=== PATIENT | female | born 1955 | race American Indian/Alaskan Native ===

== ENCOUNTER 2020-08-18 11:14 | Day surgery (SDC) | payer MEDICARE, MEDICAID ==
[~2020-08-18] VITALS: Ht 160 cm; Wt 86.8 kg
[2020-08-18] VITALS (11 sets, daily range): BP systolic 111–147; BP diastolic 64–97
[~2020-08-18 11:14] MED LIST: DABI150C PO; FURO-149 PO; METO50TA17 PO
[2020-08-18] MEDS ORDERED: normal saline 1000ml 1,000 ML IV SCH (11:40)
[2020-08-18] MEDS ORDERED: CINN500C15 (11:58)
[2020-08-18] MEDS ORDERED: DILT180C49 PO (11:58)
[2020-08-18] MEDS ORDERED: MILK1CAP3 (11:58)
[2020-08-18] MEDS ORDERED: TURM500C4 PO (11:58)
[2020-08-18] MEDS ORDERED: FENU500C PO (12:00)
[2020-08-18 12:51] LABS: MEAN PLATELET VOLUME 7.5 FL (7.4-10.4); NEUTROPHILS # (AUTO) 3.3 X10'3 (1.8-7.7)
[2020-08-18 12:52] LABS: BASOPHILS % (AUTO) 0.5 % (0-1); EOSINOPHILS % (AUTO) 1.1 % (0-6); HEMATOCRIT 40.5 % (35.0-45.0); LYMPHOCYTES # (AUTO) 0.9 X10'3 (1.1-4.8); MEAN CORPUSCULAR HEMOGLOBIN 22.9 PG (27.0-31.0); MEAN CORPUSCULAR VOLUME 71.5 FL (78-98); MONOCYTES # (AUTO) 0.3 X10'3 (0-0.9); MONOCYTES % (AUTO) 6.8 % (2-12); NEUTROPHILS % (AUTO) 71.6 % (42-75); PLATELET COUNT 366 X10'3 (140-440); RED BLOOD COUNT 5.66 X10'6 (4.20-5.60); RED CELL DISTRIBUTION WIDTH 18.9 % (11.5-14.5); WHITE BLOOD COUNT 4.6 X10'3 (4.5-11.0)
[2020-08-18 14:06] LABS: ANISOCYTOSIS 2+; HYPOCHROMASIA 1+; MICROCYTOSIS 1+; PLATELET ESTIMATE NORMAL; POLYCHROMASIA FEW
== END 2020-08-18 17:00 | disposition home or self-care (01) ==
LOC: SSTAY O 11:14
PROVIDERS: ATTEND Radiology Diagnostic Radiology
DX: R19.01 Right upper quadrant abdominal swelling, mass and lump (principal); I48.91 Unspecified atrial fibrillation; Z20.828 Contact with and (suspected) exposure to other viral communicable diseases; K70.30 Alcoholic cirrhosis of liver without ascites; I25.10 Atherosclerotic heart disease of native coronary artery without angina pectoris; I11.0 Hypertensive heart disease with heart failure; I50.9 Heart failure, unspecified; Z98.890 Other specified postprocedural states; Z79.01 Long term (current) use of anticoagulants; Z87.891 Personal history of nicotine dependence; Z79.899 Other long term (current) drug therapy
CPT/HCPCS: 36415; 49180; 76942; 85008; 85025; 85610; 87635

== ENCOUNTER 2020-12-02 17:40 | Emergency (ER) | payer BC, MEDICAID ==
[~2020-12-02] VITALS: Ht 160 cm; Wt 77.2 kg
[~2020-12-02 17:40] MED LIST changes: +CINN500C15; +DILT180C49 PO; +FENU500C PO; -FURO-149 PO; -METO50TA17 PO; +MILK1CAP3; +TURM500C4 PO
[2020-12-02 17:50] VITALS: BP 169/115
[2020-12-02] MEDS ORDERED: LIDOcaine 1% W/epiNEPHrine 1:200,000 10ml vial IJ ONE (19:20)
[2020-12-02] MEDS ORDERED: bacitracin 15gm ointment TP ONE (19:20)
[2020-12-02] MEDS ORDERED: TETanus/Pertussis (Acell)/Diphther VAC/PF (Tdap-Adult) 0.5ml syringe IMVAC ONE (19:20)
== END 2020-12-02 20:24 | disposition home or self-care (01) ==
LOC: ER 17:40
DX: S61.511A Laceration without foreign body of right wrist, initial encounter (principal); M25.561 Pain in right knee; G89.29 Other chronic pain; F19.90 Other psychoactive substance use, unspecified, uncomplicated; Z20.3 Contact with and (suspected) exposure to rabies; Z86.73 Personal history of transient ischemic attack (TIA), and cerebral infarction without residual deficits; Z79.899 Other long term (current) drug therapy; W18.39XA Other fall on same level, initial encounter; Y93.89 Activity, other specified; Y92.89 Other specified places as the place of occurrence of the external cause; Y99.8 Other external cause status
CPT/HCPCS: 12001; 73564; 90471; 90715; 99284

== ENCOUNTER 2020-12-12 15:16 | Emergency (ER) | payer BC, MEDICAID ==
[~2020-12-12] VITALS: Ht 160 cm; Wt 79.5 kg
[2020-12-12 15:22] VITALS: BP 155/86
== END 2020-12-12 15:42 | disposition home or self-care (01) ==
LOC: ER 15:16
DX: S61.411D Laceration without foreign body of right hand, subsequent encounter (principal); G89.29 Other chronic pain; Z48.02 Encounter for removal of sutures; Z86.73 Personal history of transient ischemic attack (TIA), and cerebral infarction without residual deficits; Z72.89 Other problems related to lifestyle; Z79.899 Other long term (current) drug therapy; X58.XXXD Exposure to other specified factors, subsequent encounter
CPT/HCPCS: 99281

== ENCOUNTER 2021-02-14 13:38 | Observation (INO) | payer BC, MEDICAID ==
[~2021-02-14] VITALS: Ht 160 cm; Wt 88.3 kg
[~2021-02-14 13:38] MED LIST changes: +LACT10SO32 PO; +POTA20TA19 PO; +TRAM50TA2 PO; +[UNRECOGNIZED DRUG - CODE]; +[UNRECOGNIZED DRUG - CODE]
[2021-02-14 14:45] LABS: BASOPHILS % (AUTO) 0.1 % (0-1); EOSINOPHILS % (AUTO) 0.3 % (0-6); HEMATOCRIT 37.5 % (35.0-45.0); HEMOGLOBIN 12.5 g/dl (12.0-16.0); LYMPHOCYTES # (AUTO) 0.4 X10'3 (1.1-4.8); LYMPHOCYTES % (AUTO) 8.6 % (21-51); MEAN CORPUSCULAR HEMOGLOBIN 27.6 PG (27.0-31.0); MEAN CORPUSCULAR HGB CONC 33.4 g/dL (33.0-36.5); MEAN CORPUSCULAR VOLUME 82.7 FL (78-98); MEAN PLATELET VOLUME 6.7 FL (7.4-10.4); MONOCYTES # (AUTO) 0.4 X10'3 (0-0.9); MONOCYTES % (AUTO) 7.2 % (2-12); NEUTROPHILS # (AUTO) 4.4 X10'3 (1.8-7.7); NEUTROPHILS % (AUTO) 83.8 % (42-75); PLATELET COUNT 172 X10'3 (140-440); RED BLOOD COUNT 4.54 X10'6 (4.20-5.60); RED CELL DISTRIBUTION WIDTH 23.2 % (11.5-14.5); WHITE BLOOD COUNT 5.2 X10'3 (4.5-11.0)
[2021-02-14 14:59] LABS: ALANINE AMINOTRANSFERASE 44 U/L (12-78); ALBUMIN 2.1 G/DL (3.4-5.0); ALBUMIN/GLOBULIN RATIO 0.6 (1.1-1.5); ALKALINE PHOSPHATASE 210 IU/L (46-116); ANION GAP 13 (8-16); ASPARTATE AMINO TRANSFERASE 50 U/L (10-37); BILIRUBIN,TOTAL 1.5 MG/DL (0.1-1.0); BLOOD UREA NITROGEN 9 MG/DL (7-18); BUN/CREATININE RATIO 7.6 (6.6-38.0); CALCIUM 7.7 MG/DL (8.5-10.1); CHLORIDE 101 MMOL/L (99-107); CREATININE 1.19 MG/DL (0.40-0.90); GLUCOSE 138 MG/DL (70-104); POTASSIUM 4.1 MMOL/L (3.5-5.1); SODIUM 132 MMOL/L (135-145); TOTAL CARBON DIOXIDE 18.2 MMOL/L (24-32); TOTAL PROTEIN 5.8 G/DL (6.4-8.2); eGFR 45 ML/MIN
[2021-02-14] MEDS ORDERED: normal saline 1000ml 1,000 ML IV ONE (15:20)
[2021-02-14 15:25] LABS: ANISOCYTOSIS 3+; PLATELET ESTIMATE NORMAL
[2021-02-14 15:26] LABS: BURR CELLS FEW; ELLIPTOCYTES FEW; SCHISTOCYTES FEW
[2021-02-14 16:15] LABS: CLARITY,URINE CLOUDY (Clear); COLOR,URINE AMBER (Yellow); GLUCOSE, URINE NEGATIVE (Neg); KETONES,URINE 15 mg/dl (Neg); LEUKOCYTE ESTERASE ,URINE NEGATIVE (Neg); NITRITES, URINE NEGATIVE (Neg); OCCULT BLOOD,URINE MODERATE (Neg); PROTEIN,URINE TRACE mg/dl (Neg)
[2021-02-14] MEDS ORDERED: LACT10SO3 PO (16:16)
[2021-02-14 16:23] LABS: UA COLLECTION TYPE CLN CATCH MIDSTREAM
[2021-02-14 16:24] LABS: HYALINE CASTS >30 /LPF (NEGATIVE)
[2021-02-14] MEDS ORDERED: iohexol 300mg/ml 100ml inj. ONE (16:24)
[2021-02-14 16:25] LABS: BACTERIA,URINE 1+ /HPF (Neg); SQUAMOUS EPITHELIAL CELL,UR MODERATE /LPF (FEW); WBC,URINE 0-4 /HPF (0-4)
[2021-02-14 16:26] LABS: MUCUS STRANDS MANY /LPF (Neg); TRANSITIONAL EPI CELLS,URINE MODERATE /HPF
[2021-02-14] MEDS ORDERED: potassium Cl 20 mEq SR tablet PO PRN ×2 (17:10)
[2021-02-14] MEDS ORDERED: normal saline 1000ml 1,000 ML IV SCH (17:10)
[2021-02-14] MEDS ORDERED: magnesium 4gm in 100ml NS 100 ML IV PRN (17:10)
[2021-02-14] MEDS ORDERED: magnesium Cl slow-release 64mg tablet PO PRN (17:10)
[2021-02-14] MEDS ORDERED: magnesium 2GM in 50ml NS 50 ML IV PRN (17:10)
[2021-02-14] MEDS ORDERED: acetaminophen 325mg tablet PO PRN (17:10)
[2021-02-14] MEDS ORDERED: ondansetron/PF 4mg/2ml inj IV PRN (17:10)
[2021-02-14] MEDS ORDERED: potassium Cl 40MEQ/1/2NS 520ml 520 ML IV PRN ×2 (17:10)
--- NOTE | 2021-02-14 18:05 | NUR ---
pt helped to bedside commode. stand by assist. per pt, okay to give son an update
[2021-02-14] MEDS: K and/or MAG REPLACEMENT MC SCH (20:00)
--- NOTE | 2021-02-14 20:45 | NUR ---
Patient in room PCU 3013. I have received report from NILSON Jacob and had the opportunity to ask questions and assume patient care.
[2021-02-14 21:00] VITALS: BP 133/66
[2021-02-14 21:16] LABS: OCCULT BLOOD STOOL POSITIVE (Neg)
[2021-02-14] MEDS: lactulose 20gm/30ml cup PO SCH (21:23)
[2021-02-14] MEDS: morphine 2 MG/ML inj. syringe IV PRN (21:24)
[2021-02-14 22:00] VITALS: BP 116/76
[2021-02-15] MEDS: lactulose 20gm/30ml cup PO SCH ×4 (01:37→19:24)
[2021-02-15] MEDS: morphine 2 MG/ML inj. syringe IV PRN ×5 (01:37→20:53)
[2021-02-15 02:00] VITALS: BP 127/82
--- NOTE | 2021-02-15 06:00 | NUR ---
Patient in room PCU 3013. I have received report from Su DEVINE and had the opportunity to ask questions and assume patient care.
--- NOTE | 2021-02-15 06:02 | NUR ---
Problems reprioritized. Patient report given, questions answered & plan of care reviewed with NILSON Frankel.
[2021-02-15 07:22] VITALS: BP 114/75
[2021-02-15 07:28] LABS: BASOPHILS % (AUTO) 0.6 % (0-1); EOSINOPHILS # (AUTO) 0.1 X10'3 (0-0.9); EOSINOPHILS % (AUTO) 2.8 % (0-6); HEMATOCRIT 36.2 % (35.0-45.0); HEMOGLOBIN 12.2 g/dl (12.0-16.0); LYMPHOCYTES # (AUTO) 0.8 X10'3 (1.1-4.8); LYMPHOCYTES % (AUTO) 22.7 % (21-51); MEAN CORPUSCULAR HEMOGLOBIN 27.7 PG (27.0-31.0); MEAN CORPUSCULAR HGB CONC 33.6 g/dL (33.0-36.5); MEAN CORPUSCULAR VOLUME 82.2 FL (78-98); MEAN PLATELET VOLUME 6.7 FL (7.4-10.4); MONOCYTES # (AUTO) 0.3 X10'3 (0-0.9); MONOCYTES % (AUTO) 10.3 % (2-12); NEUTROPHILS # (AUTO) 2.1 X10'3 (1.8-7.7); NEUTROPHILS % (AUTO) 63.6 % (42-75); PLATELET COUNT 142 X10'3 (140-440); RED CELL DISTRIBUTION WIDTH 23.5 % (11.5-14.5); WHITE BLOOD COUNT 3.3 X10'3 (4.5-11.0)
[2021-02-15] MEDS: K and/or MAG REPLACEMENT MC SCH ×2 (08:00→20:00)
[2021-02-15] MEDS: diltiazem CD 180mg cap (once-daily) PO SCH (08:00)
[2021-02-15 08:02] LABS: ALBUMIN 1.9 G/DL (3.4-5.0); ANION GAP 8 (8-16); BLOOD UREA NITROGEN 7 MG/DL (7-18); BUN/CREATININE RATIO 8.2 (6.6-38.0); CALCIUM 7.9 MG/DL (8.5-10.1); CHLORIDE 106 MMOL/L (99-107); CREATININE 0.85 MG/DL (0.40-0.90); GLUCOSE 73 MG/DL (70-104); POTASSIUM 3.7 MMOL/L (3.5-5.1); SODIUM 136 MMOL/L (135-145); TOTAL CARBON DIOXIDE 21.7 MMOL/L (24-32); eGFR 67 ML/MIN
[2021-02-15 09:26] LABS: ANISOCYTOSIS 3+; PLATELET ESTIMATE NORMAL
[2021-02-15 09:27] LABS: BURR CELLS FEW; ELLIPTOCYTES FEW
[2021-02-15] MEDS ORDERED: morphine 2 MG/ML inj. syringe ONE (09:42)
[2021-02-15 11:00] VITALS: BP 139/72
--- NOTE | 2021-02-15 13:56 | NUR ---
Malnutrition consult: Pt reports 14-23 lb wt loss with decreased appetite per malnutrition risk screen with RN. Patient's current scaled weight is +8.8 kg from scaled wt hx of 79.5 kg 12/28/20, both weights documented to be obtained using a chair scale. Noted that pt with bilat 2+ mild edema likely contributing to some of the wt gain. Wt likely to fluctuate as per H&P pt takes Lasix as outpatient with hx of paracentesis per ED report. Pt admit for GIB, currently NPO though states she has been eating and drinking normally per ED report. Pt appears well developed well nourished per ED report. Pt currently lacks a minimum of two criteria for malnutrition however at higher risk for becoming malnourished secondary to hepatocellular carcinoma on chemotherapy. Will continue to follow and further monitor qualifying criteria for malnutrition. Addendum: 02/15/21 at [address] Amended: Links added.
--- NOTE | 2021-02-15 14:57 | NUR ---
Sent page to Dr. Hahn regarding pt still being NPO. asked to adat. Will continue to monitor.
[2021-02-15 15:00] VITALS: BP 149/78
[2021-02-15 18:00] VITALS: BP 147/82
--- NOTE | 2021-02-15 18:11 | NUR ---
Patient in room PCU 3013. I have received report from NILSON Frankel and had the opportunity to ask questions and assume patient care.
[2021-02-15] MEDS: traMADol 50MG tablet PO PRN (19:24)
[2021-02-15 22:00] VITALS: BP 137/77
[2021-02-16] MEDS: morphine 2 MG/ML inj. syringe IV PRN ×2 (00:46→04:59)
[2021-02-16] MEDS: lactulose 20gm/30ml cup PO SCH ×2 (02:20→07:20)
--- NOTE | 2021-02-16 06:00 | NUR ---
Patient in room PCU 3013. I have received report from Su DEVINE and had the opportunity to ask questions and assume patient care.
--- NOTE | 2021-02-16 06:10 | NUR ---
Problems reprioritized. Patient report given, questions answered & plan of care reviewed with NILSON Mcgregor.
[2021-02-16 07:00] VITALS: BP 100/60
[2021-02-16] MEDS: diltiazem CD 180mg cap (once-daily) PO SCH (07:20)
[2021-02-16] MEDS: traMADol 50MG tablet PO PRN (07:25)
[2021-02-16 07:55] LABS: BASOPHILS % (AUTO) 0.7 % (0-1); EOSINOPHILS # (AUTO) 0.1 X10'3 (0-0.9); EOSINOPHILS % (AUTO) 3.1 % (0-6); HEMATOCRIT 36.6 % (35.0-45.0); HEMOGLOBIN 12.2 g/dl (12.0-16.0); LYMPHOCYTES # (AUTO) 1.1 X10'3 (1.1-4.8); LYMPHOCYTES % (AUTO) 25.5 % (21-51); MEAN CORPUSCULAR HEMOGLOBIN 27.6 PG (27.0-31.0); MEAN CORPUSCULAR HGB CONC 33.4 g/dL (33.0-36.5); MEAN CORPUSCULAR VOLUME 82.5 FL (78-98); MEAN PLATELET VOLUME 6.8 FL (7.4-10.4); MONOCYTES # (AUTO) 0.5 X10'3 (0-0.9); MONOCYTES % (AUTO) 10.2 % (2-12); NEUTROPHILS # (AUTO) 2.7 X10'3 (1.8-7.7); NEUTROPHILS % (AUTO) 60.5 % (42-75); PLATELET COUNT 180 X10'3 (140-440); RED BLOOD COUNT 4.44 X10'6 (4.20-5.60); RED CELL DISTRIBUTION WIDTH 23.6 % (11.5-14.5); WHITE BLOOD COUNT 4.5 X10'3 (4.5-11.0)
[2021-02-16] MEDS: K and/or MAG REPLACEMENT MC SCH (08:00)
[2021-02-16 08:18] LABS: ALBUMIN 1.9 G/DL (3.4-5.0); ANION GAP 9 (8-16); BLOOD UREA NITROGEN 5 MG/DL (7-18); BUN/CREATININE RATIO 6.1 (6.6-38.0); CALCIUM 7.5 MG/DL (8.5-10.1); CHLORIDE 105 MMOL/L (99-107); CREATININE 0.82 MG/DL (0.40-0.90); GLUCOSE 77 MG/DL (70-104); MAGNESIUM 1.8 MG/DL (1.5-2.4); POTASSIUM 3.7 MMOL/L (3.5-5.1); SODIUM 135 MMOL/L (135-145); TOTAL CARBON DIOXIDE 20.8 MMOL/L (24-32); eGFR 70 ML/MIN
[2021-02-16 09:29] LABS: PLATELET ESTIMATE NORMAL
[2021-02-16 09:30] LABS: ANISOCYTOSIS 3+; MICROCYTOSIS 1+; POLYCHROMASIA FEW
--- NOTE | 2021-02-16 12:30 | NUR ---
patient was provided discharge instructions and verbalized understanding. New medications were faxed to the preferred pharmacy, [facility]. PIV was DC'd with the cannula intact. Patient belongings were sent home with the patient. Patient was wheeled to the lobby and was picked up by a family member.
== END 2021-02-16 12:26 | disposition home or self-care (01) ==
LOC: ER 13:40 → ED HOLD 17:08 → PCU 3S 20:44
PROVIDERS: ADMIT Internal Medicine; ATTEND Internal Medicine
DX: K92.1 Melena (principal); I48.91 Unspecified atrial fibrillation; N17.9 Acute kidney failure, unspecified; E46 Unspecified protein-calorie malnutrition; K76.0 Fatty (change of) liver, not elsewhere classified; I25.10 Atherosclerotic heart disease of native coronary artery without angina pectoris; G89.29 Other chronic pain; Z85.05 Personal history of malignant neoplasm of liver; Z86.73 Personal history of transient ischemic attack (TIA), and cerebral infarction without residual deficits; Z92.21 Personal history of antineoplastic chemotherapy; Z79.01 Long term (current) use of anticoagulants; Z79.899 Other long term (current) drug therapy
CPT/HCPCS: 36415; 74177; 80048; 80053; 81001; 82272; 83735; 85008; 85025; 85610; 87081; 93005; 96361; 96374; 96376; 99285; G0378; J2270; J7030; Q9967

== ENCOUNTER 2022-11-03 10:32 | Emergency (ER) | payer BC, MEDICAID ==
[~2022-11-03] VITALS: Ht 160 cm; Wt 77.0 kg
[~2022-11-03 10:32] MED LIST changes: -CINN500C15; -DABI150C PO; -DILT180C49 PO; -FENU500C PO; +FURO20TA4 PO; +HYDR-3965 PO; +HYDR5TAB14 PO; +LACT10SO3 PO; -LACT10SO32 PO; -MILK1CAP3; -POTA20TA19 PO; +SPIR50TA5 PO; -TRAM50TA2 PO; -TURM500C4 PO; -[UNRECOGNIZED DRUG - CODE]; -[UNRECOGNIZED DRUG - CODE]
[2022-11-03 12:06] LABS: BASOPHILS % (AUTO) 0.5 % (0-1); EOSINOPHILS % (AUTO) 0.9 % (0-6); HEMATOCRIT 40.5 % (35.0-45.0); HEMOGLOBIN 13.3 g/dl (12.0-16.0); LYMPHOCYTES # (AUTO) 0.6 X10'3 (1.1-4.8); LYMPHOCYTES % (AUTO) 17.3 % (21-51); MEAN CORPUSCULAR HEMOGLOBIN 27.9 PG (27.0-31.0); MEAN CORPUSCULAR HGB CONC 32.8 g/dL (33.0-36.5); MEAN CORPUSCULAR VOLUME 85.1 FL (78-98); MEAN PLATELET VOLUME 7.2 FL (7.4-10.4); MONOCYTES # (AUTO) 0.2 X10'3 (0-0.9); MONOCYTES % (AUTO) 7.1 % (2-12); NEUTROPHILS # (AUTO) 2.6 X10'3 (1.8-7.7); NEUTROPHILS % (AUTO) 74.2 % (42-75); PLATELET COUNT 123 X10'3 (140-440); RED BLOOD COUNT 4.76 X10'6 (4.20-5.60); RED CELL DISTRIBUTION WIDTH 18.3 % (11.5-14.5); WHITE BLOOD COUNT 3.5 X10'3 (4.5-11.0)
[2022-11-03 12:36] LABS: ALANINE AMINOTRANSFERASE 26 U/L (12-78); ALBUMIN 3.3 G/DL (3.4-5.0); ALBUMIN/GLOBULIN RATIO 0.9 (1.1-1.5); ALKALINE PHOSPHATASE 226 IU/L (46-116); ANION GAP 8 (8-16); ASPARTATE AMINO TRANSFERASE 31 U/L (10-37); BLOOD UREA NITROGEN 10 MG/DL (7-18); BUN/CREATININE RATIO 15.6 (6.6-38.0); CALCIUM 8.5 MG/DL (8.5-10.1); CHLORIDE 106 MMOL/L (99-107); CREATININE 0.64 MG/DL (0.40-0.90); GLUCOSE 104 MG/DL (70-104); POTASSIUM 3.4 MMOL/L (3.5-5.1); SODIUM 139 MMOL/L (135-145); TOTAL CARBON DIOXIDE 25.2 MMOL/L (24-32); TOTAL PROTEIN 6.9 G/DL (6.4-8.2); eGFR > 90 ML/MIN
[2022-11-03] MEDS ORDERED: furosemide 10 MG/1 ML 10ml inj IV ONE (13:05)
--- NOTE | 2022-11-03 14:12 | NUR ---
pt ambulated independently to bathroom, but was moderately SOB upon returning. No hypoxia noted.
[2022-11-03] MEDS ORDERED: POTA20PA40 PO (14:49)
[2022-11-03 15:06] VITALS: BP 131/72
== END 2022-11-03 15:08 | disposition home or self-care (01) ==
LOC: ER 10:33
DX: I50.33 Acute on chronic diastolic (congestive) heart failure (principal); R60.0 Localized edema; R06.02 Shortness of breath; R07.89 Other chest pain; I48.91 Unspecified atrial fibrillation; G89.29 Other chronic pain; F17.200 Nicotine dependence, unspecified, uncomplicated; Z86.73 Personal history of transient ischemic attack (TIA), and cerebral infarction without residual deficits; Z85.9 Personal history of malignant neoplasm, unspecified; Z98.890 Other specified postprocedural states; Z72.89 Other problems related to lifestyle; Z79.899 Other long term (current) drug therapy
CPT/HCPCS: 36415; 71045; 80053; 83880; 84484; 85025; 93005; 96374; 99285; J1940

== ENCOUNTER 2023-01-16 13:17 | Emergency (ER) | payer BC, MEDICAID ==
[~2023-01-16] VITALS: Ht 157.5 cm; Wt 88.6 kg
[~2023-01-16 13:17] MED LIST changes: +POTA20PA40 PO
[2023-01-16 13:35] LABS: BASOPHILS % (AUTO) 0.6 % (0-1); EOSINOPHILS # (AUTO) 0.1 X10'3 (0-0.9); EOSINOPHILS % (AUTO) 2.1 % (0-6); HEMATOCRIT 42.7 % (35.0-45.0); HEMOGLOBIN 14.2 g/dl (12.0-16.0); LYMPHOCYTES # (AUTO) 1.2 X10'3 (1.1-4.8); MEAN CORPUSCULAR HEMOGLOBIN 29.1 PG (27.0-31.0); MEAN CORPUSCULAR HGB CONC 33.2 g/dL (33.0-36.5); MEAN CORPUSCULAR VOLUME 87.5 FL (78-98); MEAN PLATELET VOLUME 7.4 FL (7.4-10.4); MONOCYTES # (AUTO) 0.4 X10'3 (0-0.9); MONOCYTES % (AUTO) 10.2 % (2-12); NEUTROPHILS # (AUTO) 2.1 X10'3 (1.8-7.7); NEUTROPHILS % (AUTO) 56.1 % (42-75); PLATELET COUNT 124 X10'3 (140-440); RED BLOOD COUNT 4.88 X10'6 (4.20-5.60); RED CELL DISTRIBUTION WIDTH 16.6 % (11.5-14.5); WHITE BLOOD COUNT 3.8 X10'3 (4.5-11.0)
[2023-01-16] MEDS ORDERED: albuterol 2.5 MG/3 ML nebule NEB ONE (13:45)
[2023-01-16 13:52] LABS: ALANINE AMINOTRANSFERASE 22 U/L (12-78); ALBUMIN 3.2 G/DL (3.4-5.0); ALBUMIN/GLOBULIN RATIO 0.9 (1.1-1.5); ALKALINE PHOSPHATASE 223 IU/L (46-116); ANION GAP 8 (8-16); ASPARTATE AMINO TRANSFERASE 38 U/L (10-37); BILIRUBIN,TOTAL 0.8 MG/DL (0.1-1.0); BLOOD UREA NITROGEN 17 MG/DL (7-18); CALCIUM 8.4 MG/DL (8.5-10.1); CHLORIDE 105 MMOL/L (99-107); GLUCOSE 139 MG/DL (70-104); POTASSIUM 3.4 MMOL/L (3.5-5.1); SODIUM 139 MMOL/L (135-145); TOTAL CARBON DIOXIDE 26.1 MMOL/L (24-32); TOTAL PROTEIN 6.9 G/DL (6.4-8.2)
[2023-01-16 13:58] LABS: MAGNESIUM 1.7 MG/DL (1.5-2.4)
[2023-01-16 14:05] LABS: BUN/CREATININE RATIO 21.8 (10.0-20.0); CREATININE 0.78 MG/DL (0.40-0.90); eGFR 73 ML/MIN
[2023-01-16 14:37] LABS: APTT 57 SECONDS (22-32); D-DIMER 0.34 MG/L FEU (0-0.50)
[2023-01-16] MEDS ORDERED: mag hydrox/Alum hydrox/simeth 30ml oral suspension PO ONE (14:45)
[2023-01-16] MEDS ORDERED: pantoprazole 40mg Tablet.DR PO ONE (14:45)
[2023-01-16] MEDS ORDERED: LIDOcaine Viscous 15ml cup MM ONE (14:45)
[2023-01-16 15:52] VITALS: BP 139/70
[2023-01-16] MEDS ORDERED: PANT-47 PO (17:26)
[2023-01-16] MEDS ORDERED: albuterol 2.5 MG/3 ML nebule ONE (17:46)
--- NOTE | 2023-01-16 18:00 | NUR ---
PT TAKEN TO FAST TRACK BY RESPIRATORY FOR NEB BREATHING TX.
== END 2023-01-16 18:20 | disposition home or self-care (01) ==
LOC: ER 13:18
DX: R07.9 Chest pain, unspecified (principal); R06.02 Shortness of breath; M25.512 Pain in left shoulder
CPT/HCPCS: 36415; 71045; 80053; 83735; 83880; 84484; 85025; 85379; 85610; 85730; 94640; 94760; 99284

== ENCOUNTER 2023-05-13 13:21 | Inpatient (IN) | payer BC, MEDICAID ==
[~2023-05-13] VITALS: Ht 157.5 cm; Wt 82.0 kg
[2023-05-13 10:30] VITALS: RESP 16
[~2023-05-13 13:21] MED LIST changes: +PANT-47 PO
[2023-05-13 14:10] LABS: BASOPHILS % (AUTO) 0.1 % (0-1)
[2023-05-13 14:11] LABS: EOSINOPHILS % (AUTO) 0.2 % (0-6); HEMATOCRIT 56.1 % (35.0-45.0); LYMPHOCYTES # (AUTO) 1.3 X10'3 (1.1-4.8); LYMPHOCYTES % (AUTO) 8.9 % (21-51); MEAN CORPUSCULAR HEMOGLOBIN 31.4 PG (27.0-31.0); MEAN CORPUSCULAR HGB CONC 34.7 g/dL (33.0-36.5); MEAN CORPUSCULAR VOLUME 90.5 FL (78-98); MEAN PLATELET VOLUME 7.9 FL (7.4-10.4); MONOCYTES % (AUTO) 6.9 % (2-12); NEUTROPHILS % (AUTO) 83.9 % (42-75); PLATELET COUNT 239 X10'3 (140-440); RED CELL DISTRIBUTION WIDTH 16.2 % (11.5-14.5); WHITE BLOOD COUNT 14.2 X10'3 (4.5-11.0)
[2023-05-13 14:15] LABS: BILIRUBIN,URINE MODERATE (Neg); CLARITY,URINE SLIGHTLY CLOUDY (Clear); COLOR,URINE AMBER (Yellow); GLUCOSE, URINE 100 mg/dl (Neg); KETONES,URINE TRACE mg/dl (Neg); LEUKOCYTE ESTERASE ,URINE NEGATIVE (Neg); OCCULT BLOOD,URINE TRACE-INTACT (Neg); PH,URINE 6.5 (4.8-8.0); PROTEIN,URINE 100 mg/dl (Neg)
[2023-05-13 14:21] LABS: UA COLLECTION TYPE CLN CATCH MIDSTREAM
[2023-05-13 14:26] LABS: ALANINE AMINOTRANSFERASE 61 U/L (12-78); ALBUMIN 3.5 G/DL (3.4-5.0); ALBUMIN/GLOBULIN RATIO 0.9 (1.1-1.5); ALKALINE PHOSPHATASE 139 IU/L (46-116); ANION GAP 14 (8-16); ASPARTATE AMINO TRANSFERASE 82 U/L (10-37); BILIRUBIN,TOTAL 3.4 MG/DL (0.1-1.0); BLOOD UREA NITROGEN 14 MG/DL (7-18); BUN/CREATININE RATIO 18.2 (10.0-20.0); CHLORIDE 94 MMOL/L (99-107); CREATININE 0.77 MG/DL (0.40-0.90); GLUCOSE 113 MG/DL (70-104); LIPASE 285 U/L (73-393); SODIUM 130 MMOL/L (135-145); TOTAL CARBON DIOXIDE 21.8 MMOL/L (24-32); TOTAL PROTEIN 7.4 G/DL (6.4-8.2); eCRCL 55 ML/MIN; eGFR 74 ML/MIN
[2023-05-13 14:29] LABS: NITRITES, URINE NEGATIVE (Neg)
[2023-05-13 14:31] LABS: SQUAMOUS EPITHELIAL CELL,UR MANY /LPF (FEW)
[2023-05-13 14:32] LABS: BACTERIA,URINE 1+ /HPF (Neg); HYALINE CASTS >30 /LPF (NEGATIVE); MUCUS STRANDS MANY /LPF (Neg)
[2023-05-13 14:33] LABS: POTASSIUM 2.6 MMOL/L (3.5-5.1)
[2023-05-13 14:33] LABS: WBC,URINE 0-4 /HPF (0-4)
[2023-05-13 15:02] LABS: HEMOGLOBIN 19.5 g/dl (12.0-16.0)
[2023-05-13] MEDS ORDERED: normal saline 1000ML IV soln IVB ONE (17:00)
[2023-05-13] MEDS ORDERED: ondansetron/PF 4mg/2ml inj IV ONE (17:00)
[2023-05-13] MEDS ORDERED: morphine 4 MG/ML inj SYRINge IV ONE ×2 (17:10→18:15)
[2023-05-13] MEDS ORDERED: potassium Cl 20mEq/100mL bag 100 ML IV SCH (17:10)
[2023-05-13] MEDS ORDERED: magnesium 2GM in 50ml NS 50 ML IV ONE (17:10)
[2023-05-13] MEDS ORDERED: iohexol 300mg/ml 100ml inj. ONE (17:23)
[2023-05-13 18:08] LABS: APTT 41 SECONDS (22-32); INR 1.6 INR
[2023-05-13] MEDS ORDERED: piperacillin/tazo 3.375gm/50ml 50 ML IV ONE (18:35)
[2023-05-13] MEDS ORDERED: Potassium Cl 40 MEQ in sodium chloride 0.45% 500 ML IV ONE (18:45)
[2023-05-13] MEDS ORDERED: HYDROcodone/acetaminophen 10/325mg tab PO PRN (22:20)
[2023-05-13] MEDS ORDERED: magnesium Cl slow-release 64mg tablet PO PRN (22:20)
[2023-05-13] MEDS ORDERED: mag hydrox/Alum hydrox/simeth 30ml oral suspension PO PRN (22:20)
[2023-05-13] MEDS ORDERED: potassium Cl 40MEQ/1/2NS 520ml 520 ML IV PRN (22:20)
[2023-05-13] MEDS ORDERED: acetaminophen 325mg tablet PO PRN ×2 (22:20)
[2023-05-13] MEDS ORDERED: magnesium hydroxide 30ml (MOM) UD suspension PO PRN (22:20)
[2023-05-13] MEDS ORDERED: morphine 2 MG/ML inj. syringe IV PRN (22:20)
[2023-05-13] MEDS ORDERED: ondansetron/PF 4mg/2ml inj IV PRN (22:20)
[2023-05-13] MEDS ORDERED: diphenhydrAMINE 25mg capsule PO PRN (22:20)
[2023-05-13] MEDS ORDERED: potassium Cl 20 mEq SR tablet PO PRN (22:20)
[2023-05-13] MEDS ORDERED: magnesium 2GM in 50ml NS 50 ML IV PRN (22:20)
[2023-05-13] MEDS ORDERED: bisacodyl 10mg suppository rectal RC PRN (22:20)
[2023-05-13] MEDS ORDERED: HYDROcodone/acetaminophen 5mg/325mg tablet PO PRN (22:20)
[2023-05-13] MEDS ORDERED: diphenhydrAMINE 50 mg/ml inj IV PRN (22:20)
[2023-05-13] MEDS ORDERED: HYDROmorphone inj. 0.5 MG/0.5 ML DISP.SYRIN IV PRN (22:20)
[2023-05-13] MEDS ORDERED: magnesium 4gm in 100ml NS 100 ML IV PRN (22:20)
[2023-05-13] MEDS ORDERED: ondansetron 4mg rapidly disintigrating tab PO PRN (22:20)
[2023-05-13 23:44] LABS: APTT 39 SECONDS (22-32); INR 1.6 INR; PROTHROMBIN TIME 16.5 SECONDS (9.0-12.0)
[2023-05-14] VITALS (8 sets, daily range): BP systolic 117–169; BP diastolic 68–99; PULSE 75–142; RESP 14–18; TEMP 97.5–98.7; O2SAT 95–98
--- NOTE | 2023-05-14 | NUR ---
Patient in room ORTHO 4007. I have received report from Paolo DEVINE and had the opportunity to ask questions and assume patient care.patient orientated to room, appeared very cold unable initially to get temp. Warmed patient up with blankets. retook. 97.4 AX. Medicated x1 with [facility] for abdominal pain 04/14, will continue to monitor
[2023-05-14] MEDS: piperacillin/tazo 4.5gm/100ml 100 ML IV SCH ×3 (00:06→17:01)
[2023-05-14] MEDS: potassium Cl 20mEq in NS 1,000 ML IV SCH ×2 (00:09→08:20)
[2023-05-14 01:16] LABS: POTASSIUM 2.9 MMOL/L (3.5-5.1)
[2023-05-14] MEDS: morphine 2 MG/ML inj. syringe IV PRN ×3 (02:05→13:49)
--- NOTE | 2023-05-14 05:47 | NUR ---
Tele called to say patient was in 160's HR, was wanting to go to BR. and is in pain. Took to BR and rechecked with tele box. patients rate 110 at this time
--- NOTE | 2023-05-14 06:15 | NUR ---
Problems reprioritized. Patient report given, questions answered & plan of care reviewed with NILSON Gay.
--- NOTE | 2023-05-14 06:26 | NUR ---
Problems reprioritized. Patient report given, questions answered & plan of care reviewed with Veronica DEVINE.
--- NOTE | 2023-05-14 06:30 | NUR ---
Problems reprioritized. Patient report given, questions answered & plan of care reviewed with RN. Priscila.
--- NOTE | 2023-05-14 06:31 | NUR ---
Patient in room ORTHO 4007. I have received report from NILSON Gay and had the opportunity to ask questions and assume patient care.
[2023-05-14 06:48] LABS: BASOPHILS % (AUTO) 0 % (0-1); HEMOGLOBIN 17.9 g/dl (12.0-16.0); LYMPHOCYTES # (AUTO) 1.1 X10'3 (1.1-4.8); MEAN PLATELET VOLUME 7.6 FL (7.4-10.4); MONOCYTES # (AUTO) 0.9 X10'3 (0-0.9); NEUTROPHILS % (AUTO) 88.2 % (42-75)
[2023-05-14 06:50] LABS: EOSINOPHILS % (AUTO) 0.2 % (0-6); HEMATOCRIT 52.4 % (35.0-45.0); LYMPHOCYTES % (AUTO) 6.3 % (21-51); MEAN CORPUSCULAR HEMOGLOBIN 30.6 PG (27.0-31.0); MEAN CORPUSCULAR HGB CONC 34.1 g/dL (33.0-36.5); MEAN CORPUSCULAR VOLUME 89.7 FL (78-98); MONOCYTES % (AUTO) 5.3 % (2-12); NEUTROPHILS # (AUTO) 15.8 X10'3 (1.8-7.7); PLATELET COUNT 221 X10'3 (140-440); RED BLOOD COUNT 5.84 X10'6 (4.20-5.60); WHITE BLOOD COUNT 17.9 X10'3 (4.5-11.0)
[2023-05-14 07:04] LABS: ALANINE AMINOTRANSFERASE 75 U/L (12-78); ALBUMIN 3.1 G/DL (3.4-5.0); ALBUMIN/GLOBULIN RATIO 0.9 (1.1-1.5); ALKALINE PHOSPHATASE 125 IU/L (46-116); ANION GAP 11 (8-16); ASPARTATE AMINO TRANSFERASE 94 U/L (10-37); BILIRUBIN,TOTAL 2.6 MG/DL (0.1-1.0); BLOOD UREA NITROGEN 22 MG/DL (7-18); BUN/CREATININE RATIO 20.6 (10.0-20.0); CALCIUM 8.3 MG/DL (8.5-10.1); CHLORIDE 94 MMOL/L (99-107); CREATININE 1.07 MG/DL (0.40-0.90); GLUCOSE 111 MG/DL (70-104); MAGNESIUM 2.4 MG/DL (1.5-2.4); POTASSIUM 3.8 MMOL/L (3.5-5.1); SODIUM 128 MMOL/L (135-145); TOTAL CARBON DIOXIDE 23.2 MMOL/L (24-32); TOTAL PROTEIN 6.5 G/DL (6.4-8.2); eCRCL 39 ML/MIN; eGFR 51 ML/MIN
[2023-05-14] MEDS: pantoprazole 40MG/NS 100ML BAG 100 ML IV SCH (07:20)
[2023-05-14] MEDS: docusate sod 100mg capsule PO SCH ×2 (07:21→21:24)
--- NOTE | 2023-05-14 07:51 | NUR ---
Page Sent PAGER ID: [phone] MESSAGE: [phone] Lavelle, pt HR has went up to the 160 and pt is just laying down i did give pain meds. has not been sustaining but all over the place with HR per television analyzer. kathy [phone]
[2023-05-14] MEDS: K and/or MAG REPLACEMENT MC SCH ×2 (08:00→20:00)
--- NOTE | 2023-05-14 08:48 | NUR ---
Called and gave report to ilda in recovery about this pt. they just came and got the pt, BS was 125, i let them know that the pt was kind of NPO because there was no note, order, or anything about surgery today just a possible consult. dr fong made pt NPO at about 8 am. i let ilda know about all abnormal labs and about the pts HR going up to the 180 per television operator and being all over the place, in afib and tachy. also let them know pt had morphine right before 0700 because she was in a lot of pain.
[2023-05-14] MEDS ORDERED: SINCALIDE IV ONE (09:00)
[2023-05-14] MEDS ORDERED: NORMAL SALINE IV ONE (09:00)
--- NOTE | 2023-05-14 09:11 | NUR ---
PATIENT IS TRANSFERRED BACK TO ORTHO ROOM BY ENGINEER INTERN WITH ALL PERSONAL BELONGINGS IN PATIENT BAG WITH PATIENT LABEL: BELONGINGS ARE FOLLOW: 1 BLK SPORTS BRA, ONE PAIR OF BRIEF UNDERWEAR THAT SHE WANTED TO KEEP, ONE GLASSES CASE WITH 5 RINGS AND TAPED.
--- NOTE | 2023-05-14 09:18 | NUR ---
pt is back to the floor, dr glynn will do surgery on pt tomorrow
--- NOTE | 2023-05-14 09:39 | NUR ---
plan to do HIDA scan at 1130, Kaci DEVINE aware of plan and to not give pain medication
[2023-05-14] MEDS ORDERED: pneumococcal 23-VAL P-sac vacc 25 mcg/0.5ml vial IMVAC ONE (10:00)
[2023-05-14] MEDS ORDERED: oxyCODONE IR 5mg (immed. release) tablet PO PRN (11:45)
[2023-05-14] MEDS ORDERED: oxyCODONE IR 5mg (immed. release) tablet PO ONE (12:00)
--- NOTE | 2023-05-14 12:49 | NUR ---
asked dr fong about pts BNP being elevated and the fluids at 100 ml hr she was on said he would look at it to be changed
--- NOTE | 2023-05-14 18:40 | NUR ---
MESSAGE: Bernie- [id number] - HR 160- please call ELIUD thank you
--- NOTE | 2023-05-14 18:42 | NUR ---
Patient in room ORTHO 4007. I have received report from NILSON Winter and had the opportunity to ask questions and assume patient care.
--- NOTE | 2023-05-14 18:45 | NUR ---
paged dr fong let him know about pt increased hr back to 160s, he wanted to continue the cardizem and decrease fluids to 70 ml/hr. let night nurse know
--- NOTE | 2023-05-14 19:11 | NUR ---
Problems reprioritized. Patient report given, questions answered & plan of care reviewed with deborah harris.
[2023-05-14] MEDS: oxyCODONE IR 5mg (immed. release) tablet PO PRN (21:24)
[2023-05-14] MEDS: diltiazem CD 120mg capsule (once-daily) PO SCH (21:24)
[2023-05-15] MEDS: piperacillin/tazo 4.5gm/100ml 100 ML IV SCH ×3 (00:07→15:44)
[2023-05-15] MEDS: potassium Cl 20mEq in NS 1,000 ML IV SCH ×3 (00:07→23:31)
[2023-05-15] MEDS: temazepam 15mg capsule PO PRN ×2 (00:09→22:13)
[2023-05-15 06:00] VITALS: BP 120/68; PULSE 75; RESP 16; TEMP 98.3; O2SAT 96
--- NOTE | 2023-05-15 06:10 | NUR ---
Patient in room ORTHO 4007. I have received report from Deidra and had the opportunity to ask questions and assume patient care.
[2023-05-15 06:32] LABS: BASOPHILS % (AUTO) 0.2 % (0-1); EOSINOPHILS # (AUTO) 0.2 X10'3 (0-0.9); EOSINOPHILS % (AUTO) 1.6 % (0-6); HEMATOCRIT 43.8 % (35.0-45.0); HEMOGLOBIN 15.2 g/dl (12.0-16.0); LYMPHOCYTES # (AUTO) 1.5 X10'3 (1.1-4.8); LYMPHOCYTES % (AUTO) 14.7 % (21-51); MEAN CORPUSCULAR HEMOGLOBIN 31.6 PG (27.0-31.0); MEAN CORPUSCULAR HGB CONC 34.8 g/dL (33.0-36.5); MEAN PLATELET VOLUME 7.8 FL (7.4-10.4); MONOCYTES # (AUTO) 0.9 X10'3 (0-0.9); NEUTROPHILS # (AUTO) 7.4 X10'3 (1.8-7.7); NEUTROPHILS % (AUTO) 74.5 % (42-75); PLATELET COUNT 128 X10'3 (140-440); RED BLOOD COUNT 4.81 X10'6 (4.20-5.60); RED CELL DISTRIBUTION WIDTH 16.2 % (11.5-14.5); WHITE BLOOD COUNT 9.9 X10'3 (4.5-11.0)
--- NOTE | 2023-05-15 06:33 | NUR ---
Problems reprioritized. Patient report given, questions answered & plan of care reviewed with NILSON Ash.
[2023-05-15 06:48] LABS: ALANINE AMINOTRANSFERASE 136 U/L (12-78); ALBUMIN 2.6 G/DL (3.4-5.0); ALBUMIN/GLOBULIN RATIO 0.9 (1.1-1.5); ALKALINE PHOSPHATASE 95 IU/L (46-116); ANION GAP 6 (8-16); ASPARTATE AMINO TRANSFERASE 170 U/L (10-37); BILIRUBIN,TOTAL 2.1 MG/DL (0.1-1.0); BLOOD UREA NITROGEN 17 MG/DL (7-18); BUN/CREATININE RATIO 20.5 (10.0-20.0); CALCIUM 8.2 MG/DL (8.5-10.1); CHLORIDE 99 MMOL/L (99-107); CREATININE 0.83 MG/DL (0.40-0.90); GLUCOSE 82 MG/DL (70-104); MAGNESIUM 2.2 MG/DL (1.5-2.4); POTASSIUM 3.4 MMOL/L (3.5-5.1); SODIUM 132 MMOL/L (135-145); TOTAL CARBON DIOXIDE 26.6 MMOL/L (24-32); TOTAL PROTEIN 5.6 G/DL (6.4-8.2); eCRCL 51 ML/MIN; eGFR 68 ML/MIN
[2023-05-15 07:57] VITALS: RESP 16; O2SAT 96
[2023-05-15] MEDS: K and/or MAG REPLACEMENT MC SCH ×2 (08:00→19:02)
[2023-05-15] MEDS: pantoprazole 40MG/NS 100ML BAG 100 ML IV SCH (08:44)
[2023-05-15] MEDS: docusate sod 100mg capsule PO SCH ×2 (09:45→19:41)
[2023-05-15] MEDS: potassium Cl 20 mEq SR tablet PO PRN ×3 (09:45→17:46)
[2023-05-15] MEDS: diltiazem CD 120mg capsule (once-daily) PO SCH (09:46)
[2023-05-15] MEDS: oxyCODONE IR 5mg (immed. release) tablet PO PRN ×4 (09:46→22:13)
[2023-05-15 10:00] VITALS: BP 126/70; PULSE 82; RESP 16; TEMP 97.8; O2SAT 95
[2023-05-15] MEDS: morphine 2 MG/ML inj. syringe IV PRN ×2 (15:37→19:45)
[2023-05-15 18:00] VITALS: BP 98/63; PULSE 68; RESP 16; TEMP 97.8; O2SAT 95
--- NOTE | 2023-05-15 18:12 | NUR ---
Problems reprioritized. Patient report given, questions answered & plan of care reviewed with Prudence/Norman.
[2023-05-15 18:28] LABS: HBSAG SCREEN Negative (Negative); HEP B CORE AB, IGM Negative (Negative); HEP B CORE AB, TOT Positive (Negative)
--- NOTE | 2023-05-15 18:40 | NUR ---
Patient in room ORTHO 4007. I have received report from ALEXANDRO DEVINE and had the opportunity to ask questions and assume patient care.
[2023-05-15 20:00] VITALS: RESP 16; O2SAT 95
[2023-05-15 22:00] VITALS: BP 133/67; PULSE 74; RESP 18; TEMP 97.7; O2SAT 97
[2023-05-16] MEDS: piperacillin/tazo 4.5gm/100ml 100 ML IV SCH ×2 (00:46→07:45)
[2023-05-16] MEDS: oxyCODONE IR 5mg (immed. release) tablet PO PRN ×3 (03:06→11:37)
[2023-05-16] MEDS: morphine 2 MG/ML inj. syringe IV PRN ×2 (05:39→14:52)
[2023-05-16 06:00] VITALS: BP 112/56; PULSE 62; RESP 16; TEMP 97.7; O2SAT 98
[2023-05-16 06:35] LABS: BASOPHILS % (AUTO) 0.3 % (0-1); EOSINOPHILS # (AUTO) 0.2 X10'3 (0-0.9); EOSINOPHILS % (AUTO) 1.7 % (0-6); HEMATOCRIT 39.7 % (35.0-45.0); LYMPHOCYTES # (AUTO) 1.7 X10'3 (1.1-4.8); LYMPHOCYTES % (AUTO) 15.4 % (21-51); MEAN CORPUSCULAR HEMOGLOBIN 32.4 PG (27.0-31.0); MEAN CORPUSCULAR HGB CONC 35.2 g/dL (33.0-36.5); MEAN PLATELET VOLUME 7.9 FL (7.4-10.4); MONOCYTES # (AUTO) 0.9 X10'3 (0-0.9); MONOCYTES % (AUTO) 8.6 % (2-12); NEUTROPHILS # (AUTO) 8.1 X10'3 (1.8-7.7); PLATELET COUNT 142 X10'3 (140-440); RED BLOOD COUNT 4.32 X10'6 (4.20-5.60); RED CELL DISTRIBUTION WIDTH 16.5 % (11.5-14.5); WHITE BLOOD COUNT 10.9 X10'3 (4.5-11.0)
--- NOTE | 2023-05-16 06:35 | NUR ---
I have received report from DENISSE Austin and had the opportunity to ask questions and assume patient care. No distress at this time.
[2023-05-16 06:54] LABS: ALANINE AMINOTRANSFERASE 118 U/L (12-78); ALBUMIN 2.9 G/DL (3.4-5.0); ALKALINE PHOSPHATASE 141 IU/L (46-116); ANION GAP 8 (8-16); ASPARTATE AMINO TRANSFERASE 100 U/L (10-37); BILIRUBIN,TOTAL 1.6 MG/DL (0.1-1.0); BLOOD UREA NITROGEN 15 MG/DL (7-18); BUN/CREATININE RATIO 17.9 (10.0-20.0); CALCIUM 7.9 MG/DL (8.5-10.1); CHLORIDE 100 MMOL/L (99-107); CREATININE 0.84 MG/DL (0.40-0.90); GLUCOSE 97 MG/DL (70-104); MAGNESIUM 1.8 MG/DL (1.5-2.4); POTASSIUM 4.2 MMOL/L (3.5-5.1); SODIUM 131 MMOL/L (135-145); TOTAL CARBON DIOXIDE 22.8 MMOL/L (24-32); TOTAL PROTEIN 5.9 G/DL (6.4-8.2); eCRCL 50 ML/MIN; eGFR 67 ML/MIN
[2023-05-16] MEDS: diltiazem CD 120mg capsule (once-daily) PO SCH (07:26)
[2023-05-16] MEDS: docusate sod 100mg capsule PO SCH (07:26)
[2023-05-16] MEDS ORDERED: pantoprazole 40mg Tablet.DR PO SCH (07:30)
[2023-05-16 08:00] VITALS: RESP 16; O2SAT 96
[2023-05-16] MEDS: K and/or MAG REPLACEMENT MC SCH (08:00)
[2023-05-16 10:00] VITALS: BP 106/62; PULSE 67; RESP 17; TEMP 98.3; O2SAT 97
[2023-05-16] MEDS ORDERED: pneumococcal 23-VAL P-sac vacc 25 mcg/0.5ml vial IMVAC ONE (12:00)
[2023-05-16 12:37] VITALS: RESP 16
[2023-05-16] MEDS: potassium Cl 20mEq in NS 1,000 ML IV SCH (12:49)
[2023-05-16] MEDS ORDERED: URSO300C2 PO (13:12)
[2023-05-16] MEDS ORDERED: HYDR-3965 PO (13:12)
[2023-05-16] MEDS ORDERED: AMOX-117 PO (13:23)
--- NOTE | 2023-05-16 13:42 | NUR ---
POKER SUPERVISOR documentation: I have reviewed and agree with all interventions, assessments performed and documented by Gudelia Thomas LVN.
--- NOTE | 2023-05-16 15:51 | NUR ---
Patient discharge w/ no acute distress. Alert and oriented to situation, stable for baseline. Patient had belongings upon discharge, paperwork provided and instructions for post discharge information. IV d/c'd from the right arm, cannula intact. Patients PL cotrolled prior to leaving. Spouse picked patient up, private vehicle.
== END 2023-05-16 15:15 | disposition home or self-care (01) | DRG 871 ==
LOC: ER 13:22 → ED HOLD 22:23 → UNDOADMIN 22:23 → EDBEDREQ 23:32 → ED HOLD 23:50 → UNDOADMIN 23:50 → ORTHO 4S 23:50 → PACU 05-14 08:45 → ORTHO 4S 05-14 09:44 → PACU 05-14 09:44
PROVIDERS: ADMIT Family Medicine; ATTEND Family Medicine
PROC: BW211ZZ Computerized Tomography (CT Scan) of Abdomen and Pelvis using Low Osmolar Contrast (ICD-10-PCS; principal; 2023-05-13)
PROC: CF1C1ZZ Planar Nuclear Medicine Imaging of Hepatobiliary System, All using Technetium 99m (Tc-99m) (ICD-10-PCS; 2023-05-14)
DX: A41.9 Sepsis, unspecified organism (principal); N17.0 Acute kidney failure with tubular necrosis; K80.00 Calculus of gallbladder with acute cholecystitis without obstruction; D84.9 Immunodeficiency, unspecified; E87.1 Hypo-osmolality and hyponatremia; I13.0 Hypertensive heart and chronic kidney disease with heart failure and stage 1 through stage 4 chronic kidney disease, or unspecified chronic kidney disease; I31.39 Other pericardial effusion (noninflammatory); I50.32 Chronic diastolic (congestive) heart failure; K76.6 Portal hypertension; I25.10 Atherosclerotic heart disease of native coronary artery without angina pectoris; R74.01 Elevation of levels of liver transaminase levels; J44.9 Chronic obstructive pulmonary disease, unspecified; B19.20 Unspecified viral hepatitis C without hepatic coma; E83.39 Other disorders of phosphorus metabolism; R82.4 Acetonuria; E87.6 Hypokalemia; G89.4 Chronic pain syndrome; D75.1 Secondary polycythemia; E86.0 Dehydration; I27.20 Pulmonary hypertension, unspecified; I48.91 Unspecified atrial fibrillation; K74.60 Unspecified cirrhosis of liver; N18.9 Chronic kidney disease, unspecified; Z79.52 Long term (current) use of systemic steroids; Z82.49 Family history of ischemic heart disease and other diseases of the circulatory system; Z85.05 Personal history of malignant neoplasm of liver; Z92.3 Personal history of irradiation; Z79.899 Other long term (current) drug therapy; I25.2 Old myocardial infarction
CPT/HCPCS: 36415; 71045; 74177; 76700; 78226; 80053; 81001; 82948; 83605; 83690; 83735; 83880; 84100; 84132; 84145; 85025; 85610; 85730; 86704; 86705; 87040; 87081; 87340; 99285; A9537; C9113; G0378; J2270; J2405; J2543; J3475; J3480; J3490; J7030; Q9967

== ENCOUNTER 2024-06-20 16:54 | Emergency (ER) | payer BC, MEDICAID ==
[~2024-06-20] VITALS: Ht 157.5 cm; Wt 90.0 kg
[~2024-06-20 16:54] MED LIST changes: +URSO300C2 PO
[2024-06-20 17:30] LABS: BASOPHILS % (AUTO) 0.7 % (0-1); EOSINOPHILS # (AUTO) 0.1 X10'3 (0-0.9); EOSINOPHILS % (AUTO) 1.3 % (0-6); HEMATOCRIT 43.5 % (35.0-45.0); HEMOGLOBIN 14.4 g/dl (12.0-16.0); LYMPHOCYTES # (AUTO) 0.8 X10'3 (1.1-4.8); LYMPHOCYTES % (AUTO) 16.3 % (21-51); MEAN CORPUSCULAR HEMOGLOBIN 30.9 PG (27.0-31.0); MEAN CORPUSCULAR HGB CONC 33.1 g/dL (33.0-36.5); MEAN CORPUSCULAR VOLUME 93.4 FL (78-98); MONOCYTES # (AUTO) 0.5 X10'3 (0-0.9); MONOCYTES % (AUTO) 9.8 % (2-12); NEUTROPHILS # (AUTO) 3.7 X10'3 (1.8-7.7); NEUTROPHILS % (AUTO) 71.9 % (42-75); PLATELET COUNT 150 X10'3 (140-440); RED BLOOD COUNT 4.65 X10'6 (4.20-5.60); RED CELL DISTRIBUTION WIDTH 15.7 % (11.5-14.5); WHITE BLOOD COUNT 5.1 X10'3 (4.5-11.0)
[2024-06-20 17:48] LABS: ALBUMIN 2.8 G/DL (3.4-5.0); ANION GAP 9 (8-16); BLOOD UREA NITROGEN 20 MG/DL (7-18); CALCIUM 8.4 MG/DL (8.5-10.1); CHLORIDE 107 MMOL/L (99-107); CREATININE 0.74 MG/DL (0.40-0.90); GLUCOSE 128 MG/DL (70-104); POTASSIUM 3.9 MMOL/L (3.5-5.1); PRO BRAIN NATRIURETIC PEPTIDE 389 PG/ML (0-125); SODIUM 142 MMOL/L (135-145); TOTAL CARBON DIOXIDE 26.4 MMOL/L (24-32); eCRCL 56 ML/MIN; eGFR 78 ML/MIN
[2024-06-20 19:00] LABS: APTT 27 SECONDS (22-32); INR 1.2 INR; PROTHROMBIN TIME 12.1 SECONDS (9.0-12.0)
[2024-06-20 19:10] LABS: ALANINE AMINOTRANSFERASE 27 U/L (12-78); ALBUMIN/GLOBULIN RATIO 0.8 (1.1-1.5); ALKALINE PHOSPHATASE 261 IU/L (46-116); ASPARTATE AMINO TRANSFERASE 36 U/L (10-37); BILIRUBIN,DIRECT 0.5 MG/DL (0-0.3); FREE T4 (FREE THYROXINE) 1.27 NG/DL (0.73-1.40); THYROID STIMULATING HORMONE 1.59 ulU/ml (0.34-4.50); TOTAL PROTEIN 6.4 G/DL (6.4-8.2)
[2024-06-20 20:26] LABS: BILIRUBIN,URINE NEGATIVE (Neg); CLARITY,URINE SLIGHTLY CLOUDY (Clear); COLOR,URINE AMBER (Yellow); GLUCOSE, URINE NEGATIVE (Neg); KETONES,URINE NEGATIVE (Neg); LEUKOCYTE ESTERASE ,URINE NEGATIVE (Neg); NITRITES, URINE NEGATIVE (Neg); OCCULT BLOOD,URINE NEGATIVE (Neg); PROTEIN,URINE NEGATIVE (Neg)
[2024-06-20] MEDS: albuterol 2.5 MG/3 ML nebule NEB ONE (20:31)
[2024-06-20 20:34] VITALS: PULSE 74; RESP 18; O2SAT 96
[2024-06-20] MEDS: furosemide 10 MG/1 ML 10ml inj IV ONE (20:36)
[2024-06-20 20:38] VITALS: PULSE 74; RESP 18; O2SAT 96
[2024-06-20 21:00] LABS: UA COLLECTION TYPE CLN CATCH MIDSTREAM
[2024-06-20 21:08] LABS: SQUAMOUS EPITHELIAL CELL,UR MANY /LPF (FEW)
[2024-06-20 21:09] LABS: BACTERIA,URINE 1+ /HPF (Neg); MUCUS STRANDS FEW /LPF (Neg); RBC,URINE 0-2 /HPF (0-2); WBC,URINE 0-4 /HPF (0-4)
[2024-06-20 22:58] VITALS: BP 154/78; PULSE 88; RESP 16; TEMP 98.3; O2SAT 96
== END 2024-06-20 23:00 | disposition home or self-care (01) ==
LOC: ER 16:54
DX: R06.00 Dyspnea, unspecified (principal); I50.9 Heart failure, unspecified; I48.91 Unspecified atrial fibrillation; R53.1 Weakness; J44.9 Chronic obstructive pulmonary disease, unspecified; Z79.899 Other long term (current) drug therapy
CPT/HCPCS: 36415; 71045; 80048; 80076; 81001; 83880; 84439; 84443; 84484; 85025; 85610; 85730; 93005; 94640; 96374; 99285; J1940

== ENCOUNTER 2024-09-16 10:56 | Emergency (ER) | payer BC, MEDICAID ==
[~2024-09-16] VITALS: Ht 157.5 cm; Wt 93.2 kg
[~2024-09-16 10:56] MED LIST changes: +DABI150C PO; +DILT120C20 PO; -HYDR-3965 PO; -HYDR5TAB14 PO; -LACT10SO3 PO; -PANT-47 PO; +POTA20PA31 PO; -POTA20PA40 PO; -SPIR50TA5 PO; -URSO300C2 PO
[2024-09-16 11:16] LABS: BASOPHILS % (AUTO) 0.6 % (0-1); EOSINOPHILS # (AUTO) 0.1 X10'3 (0-0.9); EOSINOPHILS % (AUTO) 1.7 % (0-6); HEMATOCRIT 42.7 % (35.0-45.0); HEMOGLOBIN 14.5 g/dl (12.0-16.0); LYMPHOCYTES # (AUTO) 0.7 X10'3 (1.1-4.8); LYMPHOCYTES % (AUTO) 16.3 % (21-51); MEAN CORPUSCULAR HEMOGLOBIN 32.5 PG (27.0-31.0); MEAN CORPUSCULAR HGB CONC 33.9 g/dL (33.0-36.5); MEAN CORPUSCULAR VOLUME 95.9 FL (78-98); MONOCYTES # (AUTO) 0.3 X10'3 (0-0.9); MONOCYTES % (AUTO) 7.6 % (2-12); NEUTROPHILS # (AUTO) 3.3 X10'3 (1.8-7.7); NEUTROPHILS % (AUTO) 73.8 % (42-75); PLATELET COUNT 123 X10'3 (140-440); RED BLOOD COUNT 4.45 X10'6 (4.20-5.60); WHITE BLOOD COUNT 4.5 X10'3 (4.5-11.0)
[2024-09-16] MEDS: ipratropium/albuterol 3ml nebule NEB ONE (11:22)
[2024-09-16 11:23] VITALS: PULSE 111; RESP 24; O2SAT 98
[2024-09-16 11:32] LABS: ALANINE AMINOTRANSFERASE 39 U/L (12-78); ALBUMIN/GLOBULIN RATIO 0.7 (1.1-1.5); ALKALINE PHOSPHATASE 313 IU/L (46-116); ANION GAP 7 (8-16); ASPARTATE AMINO TRANSFERASE 53 U/L (10-37); BILIRUBIN,TOTAL 1.3 MG/DL (0.1-1.0); BLOOD UREA NITROGEN 15 MG/DL (7-18); BUN/CREATININE RATIO 20.5 (10.0-20.0); CALCIUM 8.5 MG/DL (8.5-10.1); CHLORIDE 105 MMOL/L (99-107); CREATININE 0.73 MG/DL (0.40-0.90); GLUCOSE 127 MG/DL (70-104); POTASSIUM 4.3 MMOL/L (3.5-5.1); SODIUM 138 MMOL/L (135-145); TOTAL CARBON DIOXIDE 25.8 MMOL/L (24-32); TOTAL PROTEIN 7.1 G/DL (6.4-8.2); eCRCL 56 ML/MIN; eGFR 79 ML/MIN
[2024-09-16 11:34] VITALS: PULSE 103; RESP 22; O2SAT 98
[2024-09-16 11:41] LABS: PRO BRAIN NATRIURETIC PEPTIDE 345 PG/ML (0-125)
[2024-09-16] MEDS ORDERED: ALBU18HF2 INH (14:12)
[2024-09-16] MEDS ORDERED: HYDR-3965 PO ×2 (14:12→15:04)
[2024-09-16 15:18] VITALS: BP 133/70; PULSE 119; RESP 22; TEMP 98.6; O2SAT 98
== END 2024-09-16 15:19 | disposition home or self-care (01) ==
LOC: ER 10:56
DX: I50.33 Acute on chronic diastolic (congestive) heart failure (principal); J44.9 Chronic obstructive pulmonary disease, unspecified; I48.91 Unspecified atrial fibrillation; Z79.899 Other long term (current) drug therapy; Z86.73 Personal history of transient ischemic attack (TIA), and cerebral infarction without residual deficits
CPT/HCPCS: 36415; 71045; 80053; 83880; 84484; 85025; 93005; 94640; 99285; J7030; 94760; A4615

== ENCOUNTER 2024-09-23 09:19 | Outpatient (CLI) | payer BC, MEDICAID ==
[~2024-09-23 09:19] MED LIST changes: +ALBU18HF2 INH; +HYDR-3965 PO
== END 2024-09-23 23:59 | disposition home or self-care (01) ==
LOC: RAD 09:19
PROVIDERS: ATTEND Physician Assistant
DX: R16.1 Splenomegaly, not elsewhere classified (principal); R74.8 Abnormal levels of other serum enzymes; R14.0 Abdominal distension (gaseous); K80.81 Other cholelithiasis with obstruction
CPT/HCPCS: 76700

== ENCOUNTER 2024-10-21 13:51 | Outpatient (CLI) | payer MEDICARE, MEDICAID ==
[~2024-10-21 13:51] MED LIST changes: -HYDR-3965 PO
== END 2024-10-21 23:59 | disposition home or self-care (01) ==
LOC: RAD 13:51
PROVIDERS: ATTEND Physician Assistant
DX: M17.12 Unilateral primary osteoarthritis, left knee (principal); M25.562 Pain in left knee
CPT/HCPCS: 73564